=== PATIENT | male | born 1985 | race Caucasian/White ===

== ENCOUNTER 2019-02-01 21:30 | Emergency (ER) | payer SELFPAY ==
--- NOTE | 2019-02-01 22:13 | ER ---
Nurse's Notes [facility] Name: Cristopher Mcdaniel II Age: 33 yrs Sex: Male : 1985 Arrival Date: 02/01/2019 Time: 21:31 Bed 20 Private MD: Diagnosis: Dental caries;Dental root caries Presentation: 02/01 21:39 Presenting complaint: Patient states: TOOTH BEEN HURTING FOR TWO HOURS NOW. rv 22:00 Transition of care: patient was not received from another setting of care. Onset of mg2 symptoms was January 2019. Risk Assessment: Do you want to hurt yourself or someone else? Patient reports no desire to harm self or others. Initial Sepsis Screen: Does the patient meet any 2 criteria? No. Patient's initial sepsis screen is negative. Does the patient have a suspected source of infection? No. Patient's initial sepsis screen is negative. Care prior to arrival: None. 22:00 Method Of Arrival: Ambulatory mg2 22:00 Acuity: GRACIE 4 mg2 22:00 Onset of symptoms is unknown. mg2 Triage Assessment: 22:00 General: Appears in no apparent distress. comfortable, Behavior is calm, cooperative. mg2 Historical: - Allergies: 21:41 No Known Allergies; rv - Home Meds: 21:41 None [Active]; rv - PMHx: 21:41 Asthma; rv - PSHx: 21:41 None; rv - Immunization history:: Adult Immunizations up to date. - Social history:: Smoking status: Patient/guardian denies using tobacco. - Ebola Screening: : No symptoms or risks identified at this time. Screenin:00 Abuse screen: Denies threats or abuse. Denies injuries from another. Tuberculosis mg2 screening: No symptoms or risk factors identified. 22:00 Nutritional screening: No deficits noted. Fall Risk None identified. mg2 Assessment: 22:00 General: Appears in no apparent distress. comfortable, Behavior is calm, cooperative. mg2 Pain: Complains of pain in right jaw Pain does not radiate. 22:00 Neuro: Level of Consciousness is awake, alert, obeys commands, Oriented to person, mg2 place, time, situation. Cardiovascular: Capillary refill < 3 seconds Patient's skin is warm and dry. Respiratory: Airway is patent Respiratory effort is even, unlabored, Respiratory pattern is regular, symmetrical. GI: No signs and/or symptoms were reported involving the gastrointestinal system. : No signs and/or symptoms were reported regarding the genitourinary system. EENT: Reports pain in mouth/teeth. Derm: Skin is intact, is healthy with good turgor, Skin is pink, warm \T\ dry. normal. Musculoskeletal: Circulation, motion, and sensation intact. Capillary refill < 3 seconds. Vital Signs: 21:41 BP 126 / 93; Pulse 94; Resp 17; Temp 98.4(O); Pulse Ox 100% ; Weight 113.4 kg; Height 6 rv ft. 4 in. (193.04 cm); 22:00 BP 122 / 78; Pulse 90; Resp 18; Temp 98; Pulse Ox 100% on R/A; mg2 21:41 Body Mass Index 30.43 (113.40 kg, 193.04 cm) rv ED Course: 21:31 Patient arrived in ED. ds1 21:50 Juan Carlos Thompson MD is Attending Physician. olga 22:00 Patient has correct armband on for positive identification. mg2 22:00 Arm band placed on. mg2 22:00 No provider procedures requiring assistance completed. mg2 22:00 Patient did not have IV access during this emergency room visit. mg2 22:12 Madhav Burnett DDS is Referral Physician. [facility] 22:31 Rufino Zuniga, RN is Primary Nurse. mg2 23:13 Triage completed. mg2 Administered Medications: 22:31 Drug: Augmentin 875 mg Route: PO; sr5 22:36 Follow up: Response: No adverse reaction; Medication administered at discharge. mg2 22:31 Drug: [place] 10 mg-325 mg 1 tabs Route: PO; sr5 22:36 Follow up: Response: No adverse reaction; Medication administered at discharge. mg2 Outcome: 22:12 Discharge ordered by . [facility] 22:37 Discharged to home ambulatory, with family. mg2 22:37 Condition: stable 22:37 Discharge instructions given to patient, family, Instructed on discharge instructions, follow up and referral plans. medication usage, Demonstrated understanding of instructions, follow-up care, medications, Prescriptions given X 2. 22:37 Patient left the ED. mg2 Signatures: Juan Carlos Thompson MD MD cha Sanford, Demi ds1 Ross Nelson RN RN sr5 Rufino Zuniga, RAMONE RN mg2 Dimitry Tracy RN RN rv
--- NOTE | 2019-02-01 22:13 | EDPHYS ---
Physician Documentation [facility] Name: Cristopher Mcdaniel II Age: 33 yrs Sex: Male : 1985 Arrival Date: 02/01/2019 Time: 21:31 Bed 20 Private MD: ED Physician Juan Carlos Thompson HPI: 02/01 22:10 This 33 yrs old Male presents to ER via Unassigned with complaints of Dental olga Pain. 22:10 The patient or guardian reports pain, tenderness. The complaints affect the right jaw. olga Context of injury: The problem was sustained at an unknown location. Historical: - Allergies: 21:41 No Known Allergies; rv - Home Meds: 21:41 None [Active]; rv - PMHx: 21:41 Asthma; rv - PSHx: 21:41 None; rv - Immunization history:: Adult Immunizations up to date. - Social history:: Smoking status: Patient/guardian denies using tobacco. - Ebola Screening: : No symptoms or risks identified at this time. ROS: 22:10 Constitutional: Negative for fever, chills, and weight loss, Eyes: Negative for injury, olga pain, redness, and discharge, Neck: Negative for injury, pain, and swelling, Cardiovascular: Negative for chest pain, palpitations, and edema, Respiratory: Negative for shortness of breath, cough, wheezing, and pleuritic chest pain, Abdomen/GI: Negative for abdominal pain, nausea, vomiting, diarrhea, and constipation, Back: Negative for injury and pain, : Negative for injury, bleeding, discharge, and swelling, MS/Extremity: Negative for injury and deformity, Skin: Negative for injury, rash, and discoloration, Neuro: Negative for headache, weakness, numbness, tingling, and seizure, Psych: Negative for depression, anxiety, suicide ideation, homicidal ideation, and hallucinations, Allergy/Immunology: Negative for hives, rash, and allergies, Endocrine: Negative for neck swelling, polydipsia, polyuria, polyphagia, and marked weight changes, Hematologic/Lymphatic: Negative for swollen nodes, abnormal bleeding, and unusual bruising. 22:10 ENT: Positive for dental pain, Gum pain Exam: 22:10 Constitutional: This is a well developed, well nourished patient who is awake, alert, olga and in no acute distress. Eyes: Pupils equal round and reactive to light, extra-ocular motions intact. Lids and lashes normal. Conjunctiva and sclera are non-icteric and not injected. Cornea within normal limits. Periorbital areas with no swelling, redness, or edema. ENT: Nares patent. No nasal discharge, no septal abnormalities noted. Tympanic membranes are normal and external auditory canals are clear. Oropharynx with no redness, swelling, or masses, exudates, or evidence of obstruction, uvula midline. Mucous membranes moist. Neck: Trachea midline, no thyromegaly or masses palpated, and no cervical lymphadenopathy. Supple, full range of motion without nuchal rigidity, or vertebral point tenderness. No Meningismus. Chest/axilla: Normal chest wall appearance and motion. Nontender with no deformity. No lesions are appreciated. Cardiovascular: Regular rate and rhythm with a normal S1 and S2. No gallops, murmurs, or rubs. Normal PMI, no JVD. No pulse deficits. Respiratory: Lungs have equal breath sounds bilaterally, clear to auscultation and percussion. No rales, rhonchi or wheezes noted. No increased work of breathing, no retractions or nasal flaring. Abdomen/GI: Soft, non-tender, with normal bowel sounds. No distension or tympany. No guarding or rebound. No evidence of tenderness throughout. Back: No spinal tenderness. No costovertebral tenderness. Full range of motion. Male : Normal genitalia with no discharge or lesions. Skin: Warm, dry with normal turgor. Normal color with no rashes, no lesions, and no evidence of cellulitis. MS/ Extremity: Pulses equal, no cyanosis. Neurovascular intact. Full, normal range of motion. Neuro: Awake and alert, GCS 15, oriented to person, place, time, and situation. Cranial nerves II-XII grossly intact. Motor strength 5/5 in all extremities. Sensory grossly intact. Cerebellar exam normal. Normal gait. Psych: Awake, alert, with orientation to person, place and time. Behavior, mood, and affect are within normal limits. 22:10 Head/face: Noted is swelling, that is mild, of the right jaw. Vital Signs: 21:41 BP 126 / 93; Pulse 94; Resp 17; Temp 98.4(O); Pulse Ox 100% ; Weight 113.4 kg; Height 6 rv ft. 4 in. (193.04 cm); 22:00 BP 122 / 78; Pulse 90; Resp 18; Temp 98; Pulse Ox 100% on R/A; mg2 21:41 Body Mass Index 30.43 (113.40 kg, 193.04 cm) rv MDM: 21:50 Patient medically screened. [facility] 22:12 Data reviewed: vital signs, nurses notes, lab test result(s). olga Administered Medications: 22:31 Drug: Augmentin 875 mg Route: PO; sr5 22:36 Follow up: Response: No adverse reaction; Medication administered at discharge. mg2 22:31 Drug: [place] 10 mg-325 mg 1 tabs Route: PO; sr5 22:36 Follow up: Response: No adverse reaction; Medication administered at discharge. mg2 Disposition: 02/01/19 22:12 Discharged to Home. Impression: Dental caries, Dental root caries. - Condition is Stable. - Discharge Instructions: Dental Caries, Adult, Dental Pain, Dental Pain, [id number], Diet and Dental Disease, Dental Caries, [id number]. - Prescriptions for Augmentin 875- 125 mg Oral Tablet - take 1 tablet by ORAL route every 12 hours for 10 days; 20 tablet. Tylenol- Codeine #3 300-30 mg Oral Tablet - take 2 tablet by ORAL route every 6 hours As needed; 30 tablet. - Medication Reconciliation Form, Thank You Letter, Antibiotic Education, Prescription Opioid Use form. - Follow up: Private Physician; When: 2 - 3 days; Reason: Recheck today's complaints, Continuance of care, Re-evaluation by your physician. Follow up: Madhav Burnett DDS; When: 2 - 3 days; Reason: Recheck today's complaints, Re-evaluation by your physician. - Problem is new. - Symptoms have improved. Signatures: Juan Carlos Thompson MD MD cha Resecker, Sam RN RN sr5 Rufino Zuniga, RN RN mg2 Dimitry Tracy, RAMONE RN rv Corrections: (The following items were deleted from the chart) 22:37 22:12 02/01/2019 22:12 Discharged to Home. Impression: Dental caries; Dental root mg2 caries. Condition is Stable. Forms are Medication Reconciliation Form, Thank You Letter, Antibiotic Education, Prescription Opioid Use. Follow up: Private Physician; When: 2 - 3 days; Reason: Recheck today's complaints, Continuance of care, Re-evaluation by your physician. Follow up: Madhav Burnett; When: 2 - 3 days; Reason: Recheck today's complaints, Re-evaluation by your physician. Problem is new. Symptoms have improved. olga
[2019-02-01] MEDS ORDERED: HYDROCODONE/APAP 10/325 TAB ONE ×2 (22:30→22:36)
[2019-02-01] MEDS ORDERED: AMOX/K CLAV 875 MG TAB ONE ×2 (22:30→22:35)
[2019-02-01 22:43] VITALS: BP 126/93; TEMP 98.4; O2SAT 100
== END 2019-02-01 22:37 | disposition home or self-care (01) ==
LOC: ER 21:30
DX: K02.9 Dental caries, unspecified (principal); K02.7 Dental root caries
CPT/HCPCS: 99283

== ENCOUNTER 2019-10-18 18:11 | Emergency (ER) | payer SELFPAY ==
[2019-10-18 19:10] LABS: Urine Amorphous Sediment 1+ /HPF (NONE SEEN); Urine Bacteria <20 /HPF (NONE SEEN); Urine Culture Reflex Order REFLEXED; Urine RBC <5 /HPF (NONE SEEN)
[2019-10-18 19:11] LABS: Urine Blood TRACE (NEG); Urine Glucose NEGATIVE (NEG); Urine Protein 2+ (NEG); Urine Specific Gravity 1.025 (1.005-1.030)
--- NOTE | 2019-10-18 19:14 | EDPHYS ---
Physician Documentation [facility] Name: Cristopher Mcdaniel II Age: 34 yrs Sex: Male : 1985 Arrival Date: 10/18/2019 Time: 18:13 Bed 20 Private MD: ED Physician Ady Arevalo HPI: 10/17 19:12 This 34 yrs old Male presents to ER via Ambulatory with complaints of Pain kb With Urination. 19:12 The patient presents with symptoms include dysuria, purulent penile discharge, urinary kb symptoms, dribbling of urine, dysuria, urinary frequency. Onset: The symptoms/episode began/occurred 1 week(s) ago. Modifying factors: The symptoms are alleviated by nothing, the symptoms are aggravated by urinating. Associated signs and symptoms: Pertinent positives: dysuria, Pertinent negatives: abdominal pain, constipation, diarrhea, fever, hematuria, nausea, vomiting. Severity of symptoms: At their worst the symptoms were moderate, in the emergency department the symptoms are unchanged. The patient has not experienced similar symptoms in the past. The patient has not recently seen a physician. Historical: - Allergies: 18:19 No Known Allergies; ll1 - PMHx: 18:19 Asthma; ll1 - PSHx: 18:19 None; ll1 - Immunization history:: Flu vaccine is not up to date. - Social history:: Smoking status: Patient reports the use of cigarette tobacco products, smokes one pack cigarettes per day. Patient uses alcohol, but reports only rare drinking. Patient/guardian denies using street drugs. ROS: 19:11 Constitutional: Negative for fever, chills, and weight loss, Cardiovascular: Negative kb for chest pain, palpitations, and edema, Respiratory: Negative for shortness of breath, cough, wheezing, and pleuritic chest pain, Abdomen/GI: Negative for abdominal pain, nausea, vomiting, diarrhea, and constipation, Back: Negative for injury and pain, MS/Extremity: Negative for injury and deformity, Skin: Negative for injury, rash, and discoloration, Neuro: Negative for headache, weakness, numbness, tingling, and seizure. 19:11 : Positive for urinary frequency, small amounts, burning with urination, penile discharge. Exam: 19:11 Constitutional: This is a well developed, well nourished patient who is awake, alert, kb and in no acute distress. Head/Face: Normocephalic, atraumatic. Chest/axilla: Normal chest wall appearance and motion. Nontender with no deformity. No lesions are appreciated. Cardiovascular: Regular rate and rhythm with a normal S1 and S2. No gallops, murmurs, or rubs. Normal PMI, no JVD. No pulse deficits. Respiratory: Lungs have equal breath sounds bilaterally, clear to auscultation and percussion. No rales, rhonchi or wheezes noted. No increased work of breathing, no retractions or nasal flaring. Abdomen/GI: Soft, non-tender, with normal bowel sounds. No distension or tympany. No guarding or rebound. No evidence of tenderness throughout. Skin: Warm, dry with normal turgor. Normal color with no rashes, no lesions, and no evidence of cellulitis. MS/ Extremity: Pulses equal, no cyanosis. Neurovascular intact. Full, normal range of motion. Neuro: Awake and alert, GCS 15, oriented to person, place, time, and situation. Cranial nerves II-XII grossly intact. Motor strength 5/5 in all extremities. Sensory grossly intact. Cerebellar exam normal. Normal gait. Vital Signs: 18:18 BP 143 / 96; Pulse 98; Resp 18; Temp 99.1; Pulse Ox 100% ; Pain 0/10; ll1 19:08 BP 151 / 86; Pulse 94; Resp 16; Pulse Ox 99% ; Pain 0/10; mt2 MDM: 18:25 Patient medically screened. kb 19:11 Data reviewed: vital signs, nurses notes. Data interpreted: Pulse oximetry: on room air kb is 99 %. Interpretation: normal. Counseling: I had a detailed discussion with the patient and/or guardian regarding: the historical points, exam findings, and any diagnostic results supporting the discharge/admit diagnosis, lab results, the need for outpatient follow up, a family practitioner, to return to the emergency department if symptoms worsen or persist or if there are any questions or concerns that arise at home. 10/17 18:19 Order name: Urine Microscopic Only; Complete Time: 19:11 kb 10/17 18:33 Order name: Urine Dipstick--Ancillary (enter results); Complete Time: 19:14 em1 10/17 18:19 Order name: Urine Dipstick-Ancillary (obtain specimen); Complete Time: 18:31 kb 10/17 19:11 Order name: Urine Culture EDMS Administered Medications: 19:30 Drug: Rocephin (cefTRIAXone) 250 mg Route: IM; Site: left ventrogluteal; mt2 19:31 Follow up: Response: Medication administered at discharge. mt2 19:30 Drug: Zithromax 1 grams Route: PO; mt2 19:31 Follow up: Response: Medication administered at discharge. mt2 Disposition: 10/18 07:54 Co-signature as Attending Physician, Ady Arevalo MD. rn Disposition: 10/18/19 19:13 Discharged to Home. Impression: Dysuria, Unspecified sexually transmitted disease. - Condition is Stable. - Discharge Instructions: Dysuria, Sexually Transmitted Disease, Irzw-vh-[id number], Urinary Tract Infection, Adult, Nayh-[id number]. - Prescriptions for Doxycycline Hyclate 100 mg Oral Tablet - take 1 tablet by ORAL route every 12 hours; 20 tablet. - Medication Reconciliation Form, Thank You Letter, Antibiotic Education, Prescription Opioid Use form. - Follow up: Emergency Department; When: As needed; Reason: Worsening of condition. Follow up: Private Physician; When: 2 - 3 days; Reason: Recheck today's complaints, Continuance of care, Re-evaluation by your physician. Signatures: Dispatcher [employer] EDSD Eli Ram, FIELD TRAFFIC INVESTIGATOR-C FIELD TRAFFIC INVESTIGATOR-Ckb Ady Arevalo MD MD rn Lewis, Lynsay, RN RN ll1 Jammie Jarquin RN RN mt2 Corrections: (The following items were deleted from the chart) 10/17 19:11 19:11 : Positive for urinary frequency, small amounts, burning with urination, [facility] 19:42 19:13 10/18/2019 19:13 Discharged to Home. Impression: Dysuria; Unspecified sexually mt2 transmitted disease. Condition is Stable. Forms are Medication Reconciliation Form, Thank You Letter, Antibiotic Education, Prescription Opioid Use. Follow up: Emergency Department; When: As needed; Reason: Worsening of condition. Follow up: Private Physician; When: 2 - 3 days; Reason: Recheck today's complaints, Continuance of care, Re-evaluation by your physician. kb
--- NOTE | 2019-10-18 19:14 | ER ---
Nurse's Notes [facility] Name: Cristopher Mcdaniel II Age: 34 yrs Sex: Male : 1985 Arrival Date: 10/18/2019 Time: 18:13 Bed 20 Private MD: Diagnosis: Dysuria;Unspecified sexually transmitted disease Presentation: 10/17 18:18 Chief complaint: Patient states: Painful urination for 1 week. + urinary frequency. ll1 Coronavirus screen: Client denies travel out of the [place] in the last 14 days. At this time, the client does not indicate any symptoms associated with coronavirus-19. Ebola Screen: Patient denies travel to an Ebola-affected area in the 21 days before illness onset. Initial Sepsis Screen: Does the patient meet any 2 criteria? HR > 90 bpm. No. Patient's initial sepsis screen is negative. Risk Assessment: Do you want to hurt yourself or someone else? Patient reports no desire to harm self or others. Onset of symptoms was October 11, 2019. 18:18 Method Of Arrival: Ambulatory [facility] 18:18 Acuity: GRACIE 4 1 19:01 Initial Sepsis Screen: Does the patient have a suspected source of infection? No. mt2 Patient's initial sepsis screen is negative. Historical: - Allergies: 18:19 No Known Allergies; ll1 - PMHx: 18:19 Asthma; ll1 - PSHx: 18:19 None; ll1 - Immunization history:: Flu vaccine is not up to date. - Social history:: Smoking status: Patient reports the use of cigarette tobacco products, smokes one pack cigarettes per day. Patient uses alcohol, but reports only rare drinking. Patient/guardian denies using street drugs. Screenin:25 Abuse screen: Denies threats or abuse. Denies injuries from another. Nutritional jl7 screening: No deficits noted. Tuberculosis screening: No symptoms or risk factors identified. Fall Risk None identified. Total Coleman Fall Scale indicates No Risk (0-24 pts). Assessment: 18:25 General: Appears in no apparent distress. uncomfortable, Behavior is cooperative, jl7 anxious. Pain: Denies pain. Neuro: Level of Consciousness is awake, alert, obeys commands, Oriented to person, place, time, situation. Cardiovascular: Patient's skin is warm and dry. Respiratory: Airway is patent Respiratory effort is even, unlabored, Respiratory pattern is regular, symmetrical. : Urine is cloudy, Reports burning with urination, x 1 week discharge, from penis that is white, incontinence, urgency, urinary frequency. Derm: Skin is pink, warm \T\ dry. 19:08 Reassessment: Patient and/or family updated on plan of care and expected duration. Pain mt2 level reassessed. Patient is alert, oriented x 3, equal unlabored respirations, skin warm/dry/pink. Patient denies pain at this time. General: Appears comfortable, Behavior is calm. Vital Signs: 18:18 BP 143 / 96; Pulse 98; Resp 18; Temp 99.1; Pulse Ox 100% ; Pain 0/10; ll1 19:08 BP 151 / 86; Pulse 94; Resp 16; Pulse Ox 99% ; Pain 0/10; mt2 ED Course: 18:13 Patient arrived in ED. as 18:19 Triage completed. ll1 18:19 Eli [facility] F[facility]-C [facility] kb 18:19 Ady Arevalo MD is Attending Physician. kb 18:19 Arm band placed on Patient placed in an exam room, on a stretcher. ll1 18:24 Joel Sutton, RN is Primary Nurse. jl7 18:25 Patient has correct armband on for positive identification. Bed in low position. Call jl7 light in reach. Side rails up X 1. 18:25 Urine collected: clean catch specimen, cloudy. jl7 18:55 Primary Nurse role handed off by Joel Sutton, RN mt2 18:55 Jammie Jarquin, RAMONE is Primary Nurse. mt2 19:31 No provider procedures requiring assistance completed. Patient did not have IV access mt2 during this emergency room visit. Administered Medications: 19:30 Drug: Rocephin (cefTRIAXone) 250 mg Route: IM; Site: left ventrogluteal; mt2 19:31 Follow up: Response: Medication administered at discharge. mt2 19:30 Drug: Zithromax 1 grams Route: PO; mt2 19:31 Follow up: Response: Medication administered at discharge. mt2 Outcome: 19:13 Discharge ordered by . kb 19:32 Discharged to home ambulatory. mt2 19:32 Condition: good 19:32 Discharge instructions given to patient, Instructed on discharge instructions, follow up and referral plans. medication usage, Demonstrated understanding of instructions, follow-up care, medications, Prescriptions given X 1. 19:42 Patient left the ED. mt2 Signatures: Eli Ram, KATHY-Barby AGUILARP-Gladis Moody Jahala RN RN jl7 Cielo Nickerson RN RN ll1 Jammie Jarquin RN RN mt2
[2019-10-18] MEDS ORDERED: CEFTRIAXONE 250 MG/VIAL ONE (19:36)
[2019-10-18] MEDS ORDERED: AZITHROMYCIN 250 MG TAB ONE (19:36)
[2019-10-18] MEDS ORDERED: LIDOCAINE 1% MPF 2 ML AMPULE ONE (19:36)
[2019-10-18 22:15] VITALS: TEMP 99.1
[2019-10-18 22:16] VITALS: BP 151/86; O2SAT 99
== END 2019-10-18 19:42 | disposition home or self-care (01) ==
LOC: ER 18:11
DX: A64 Unspecified sexually transmitted disease (principal); F17.210 Nicotine dependence, cigarettes, uncomplicated
CPT/HCPCS: 81003; 81015; 87086; 87088; 96372; 99283; J0696; J2001

== ENCOUNTER 2020-02-06 13:11 | Emergency (ER) | payer BC, OTHER, SELFPAY ==
[2020-02-06 13:45] LABS: Absolute Lymphocytes (CBC) 2.2 K/uL (0.7-4.9); Basophils % 0.4 % (0-1.3); Hematocrit 42.9 % (39.6-49.0); Lymphocytes % 31.6 % (15.3-44.8); MPV 8.3 fL (7.6-11.3)
[2020-02-06 13:52] LABS: Protime INR 1.04
[2020-02-06] MEDS ORDERED: ACETAMINOPHEN 500 MG TAB ONE (13:55)
[2020-02-06] MEDS ORDERED: NA CHLORIDE 0.9% 1,000 ML ONE (13:56)
[2020-02-06 14:04] LABS: BUN Blood Urea Nitrogen 15 mg/dL (7-18); Bicarbonate 27 mmol/L (21-32); Glucose Level 169 mg/dL (74-106); Potassium 3.8 mmol/L (3.5-5.1); Sodium Level 140 mmol/L (136-145); Troponin I < 0.02 ng/mL (0.0-0.045)
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
[2020-02-06] MEDS ORDERED: FENTANYL CITR 100 MCG/2 ML ONE (15:10)
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
[2020-02-06] MEDS ORDERED: KETOROLAC 30 MG/ML INJ ONE (16:08)
[2020-02-06 16:17] VITALS: TEMP 99.2
[2020-02-06 16:19] VITALS: BP 150/80; O2SAT 100
--- NOTE | 2020-02-07 16:08 | EKG ---
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
== END 2020-02-06 16:13 | disposition home or self-care (01) ==
LOC: ER 13:11
DX: S30.1XXA Contusion of abdominal wall, initial encounter (principal); V49.49XA Driver injured in collision with other motor vehicles in traffic accident, initial encounter
CPT/HCPCS: 96361; 93005; 85025; 80048; 36415; 86900; 86850; 85610; 86901; 84484; 70450; 72125; 71260; 74177; 71045; 73562; 73590; 96375; 96374; 99285; Q9967; J3010; J7030; G0390

== ENCOUNTER 2020-02-11 11:42 | Emergency (ER) | payer BC ==
[2020-02-11] MEDS ORDERED: KETOROLAC 30 MG/ML INJ ONE (14:36)
[2020-02-11 15:02] LABS: Absolute Lymphocytes (CBC) 2.4 K/uL (0.7-4.9); Basophils % 0.4 % (0-1.3); Hematocrit 43.2 % (39.6-49.0); Lymphocytes % 38.5 % (15.3-44.8); MPV 7.9 fL (7.6-11.3); RBC Red Blood Cell Count 5.44 M/uL (4.33-5.43)
[2020-02-11 15:08] LABS: Protime INR 1.06
[2020-02-11 15:24] LABS: Bilirubin Direct 0.2 mg/dL (0-0.2); Bilirubin Total 0.9 mg/dL (0.2-1.0); Magnesium 2.1 mg/dL (1.8-2.4); Troponin (Emerg Dept Use Only) 0.02 ng/mL (0.0-0.045)
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
--- NOTE | 2020-02-11 16:03 | RAD REPORT ---
EXAM DESCRIPTION: Thomas Single View02/11/2020 2:33 pm CLINICAL HISTORY: Chest pain COMPARISON: January 2020 FINDINGS: The lungs appear clear of acute infiltrate. The heart is borderline enlarged IMPRESSION: No acute abnormalities displayed
[2020-02-11] MEDS ORDERED: CYCLOBENZAPRINE 10 MG TAB ONE (16:04)
[2020-02-11] MEDS ORDERED: ALBUTEROL INHALER 60 PUFF/8 GM IH ONE (16:31)
[2020-02-11 16:37] VITALS: BP 147/88; TEMP 98.9; O2SAT 99
--- NOTE | 2020-02-12 15:28 | EKG ---
Test Date: 2020-02-11 Test Time: 15:42:42 [place]: PH MEASUREMENT RESULTS: Intervals: Rate: 65 ME: 186 QRSD: 102 QT: 370 QTc: 384 [place]: P: 12 ME: 186 QRS: 9 T: 48 INTERPRETIVE STATEMENTS: Normal sinus rhythm Normal ECG Compared to ECG 02/06/2020 13:46:30 Sinus tachycardia no longer present T-wave abnormality no longer present Electronically Signed On 02-12-20 15:26:32 ASSISTANT FRONT OFFICE MANAGER by Brett Barrios
== END 2020-02-11 16:23 | disposition home or self-care (01) ==
LOC: ER 11:42
DX: R07.89 Other chest pain (principal); Z87.891 Personal history of nicotine dependence
CPT/HCPCS: 36415; 71045; 80048; 80076; 83735; 83880; 84484; 85025; 85610; 93005; 96374; 99284

== ENCOUNTER 2023-01-02 20:24 | Emergency (ER) | payer OTHER, SELFPAY ==
--- OUTSIDE RECORDS SUMMARY | 2023-01-02 20:27 | XMS REPORT | Continuity of Care Document ---
:1985 Author Organization [facility] t Address [address] [place] [address] Care Team Providers Name Role Phone Nika Bruce DO Attending Clinician Gavi Ag MD Attending Clinician GAVI AG Attending Clinician Unavailable Payers Payer Name Policy Type Policy Number Effective Date Expiration Date S ource Problems Condition Condition Condition Status Onset Resolution Last Treating Co mments Source Name Details Category Date Date Treatment Clinician Date No known No known Disease Unive rs active active ity of problems problems [facility] Allergies, Adverse Reactions, Alerts Allergy Allergy Status Severity Reaction(s) Onset Inactive Treating Comm ents Source Name Type Date Date Clinician NO KNOWN Drug Active Univers ALLERGIE Class ity of S [facility] Social History Social Habit Start Date Stop Date Quantity Comments Source Exposure to Not sure [place] of SARS-CoV-2 [facility] (event) [place] Alcohol intake 2020-05-04 2020-05-04 [facility] 00:00:00 00:00:00 [facility] History of 2014-07-16 Cigarette Smoker [facility] of tobacco use 00:00:00 [facility] Sex Assigned [birth year] Universit y of 00:00:00 00:00:00 [facility] Smoking Status Start Date Stop Date Source Former smoker 2020-05-04 00:00:00 2020-05-04 00:00:00 [facility] Medications Ordered Filled Start Stop Current Ordering Indication Dosage Frequency Signature Comments Components Source Medication Medication Date Date Medication? Clinician (SIG) Name Name ketorolac No 60mg 60 mg, Unive rs (TORADOL) 05-05 Intramuscu ity of injection 00:53: 00:59 lar, ONCE, [place] 60 mg 00 :00 1 dose, Medical Fri Branch 05/04/20 at 2000, [facility] Restricted medication : SAW AGZOEY [place] HYDROcodone 2020- No 1{tbl} 1 tablet, Univers -acetaminop 305-04 Oral, ity of hen (NORCO 00:15: 23:13 ONCE, 1 Cipriano as 5) 5-325 mg 00 :00 dose, Fri Med ical tablet 1 05/04/20 at [facility] h tablet 191, SHE naproxen Yes [id number] 550mg Take 1 Un alex sodium 550 05-04 tablet by ity of mg tablet 00:00: mouth 2 (two) Medical times Branch daily with meals. benzonatate Yes 200mg Take 1 Uni vers 200 mg 06-05 capsule by ity of capsule 00:00: mouth 3 (three) Medical times Branch daily as needed for Cough. diclofenac Yes Univers (VOLTAREN) 4-05 ity of 75 mg EC 00:00: [place] tablet 00 Medical Branch PROAIR Yes Univers RESPICLICK 4-05 ity of 90 00:00: [place] mcg/actuati 00 Medical on AePB Branch Vital Signs Vital Name Observation Time Observation Value Comments Source Systolic blood 2020-05-04 22:59:00 143 mm[Hg] Univer sity of pressure [facility] Diastolic blood 2020-05-04 22:59:00 85 mm[Hg] [facility] rate 2020-05-04 22:59:00 102 /min [facility] Body temperature 2020-05-04 22:59:00 37.17 Milagro [facility] Respiratory rate 2020-05-04 22:59:00 20 /min [facility] Body height 2020-05-04 22:59:00 185.4 cm [facility] Body weight 2020-05-04 22:59:00 106.595 kg [facility] BMI 2020-05-04 22:59:00 31.00 kg/m2 [facility] Oxygen saturation in 2020-05-04 22:59:00 99 /min [facility] Arterial blood by [facility] Pulse oximetry Branch Procedures Procedure Date / Time Performed Performing Clinician John e XR KNEE <3 VW RIGHT 2020-05-04 23:39:08 Nika Bruce [facility] CONSENT/REFUSAL FOR 2020-05-04 23:09:26 [facility]assigned, [facility] AND Name Medical [place] TREATMENT Encounters Start End Encounter Admission Attending Care Care Encounter Source Date/Time Date/Time Type Type Clinicians Facility Department ID 2020-05-04 2020-05-04 Emergency Nika Bruce [facility] [id number] Univers 18:04:00 20:32:00 Gavi Ag [place] [id number] paddy [facility] [id number] [facility] [id number] [facility] 084 Branch 2020-05-04 2020-05-04 Emergency X TAJ AG ERT [id number] Univers 18:04:00 18:04:00 GAVI thomason [facility] Results This patient has no known results.
[2023-01-02] MEDS ORDERED: HYDROCODONE/APAP 10/325 TAB ONE (20:56)
--- NOTE | 2023-01-02 21:38 | RAD REPORT ---
EXAM DESCRIPTION: RAD - Shoulder Left 2 View - 01/02/2023 9:23 pm CLINICAL HISTORY: Left shoulder pain FINDINGS: No fracture or dislocation is seen.
--- NOTE | 2023-01-02 21:38 | RAD REPORT ---
EXAM DESCRIPTION: RAD - Ribs Left - 01/02/2023 9:23 pm CLINICAL HISTORY: Rib pain FINDINGS: No fracture seen
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
[2023-01-02 22:40] VITALS: TEMP 97.7
[2023-01-02 22:42] VITALS: O2SAT 100
[2023-01-02 22:43] VITALS: BP 125/63
== END 2023-01-02 22:19 | disposition home or self-care (01) ==
LOC: ER 20:24
DX: M25.512 Pain in left shoulder (principal); R07.89 Other chest pain; V59.40XA Driver of pick-up truck or van injured in collision with unspecified motor vehicles in traffic accident, initial encounter
CPT/HCPCS: 99283